=== PATIENT | male | born 1975 | race African-American/Black ===

== ENCOUNTER 2021-07-17 04:48 | Emergency (ER) | payer OTHER ==
[2021-07-17] MEDS ORDERED: TETRACAINE 0.5% OPHTH SOLN 2 ML BOTTLE ONE (04:56)
[2021-07-17] MEDS ORDERED: FLUORESCEIN NA 1 EA STRIP ONE (04:56)
[2021-07-17] MEDS ORDERED: TETRACAINE 0.5% HCL 0.6ML DROPPER.BOTTLE OD ONE (04:56)
[2021-07-17 05:03] VITALS: BP 128/81; PULSE 63; TEMP 99.1; BMI 29.5
== END 2021-07-17 05:14 | disposition home or self-care (01) ==
LOC: EDBD → FER 04:48
DX: S05.01XA Injury of conjunctiva and corneal abrasion without foreign body, right eye, initial encounter (principal); Y04.8XXA Assault by other bodily force, initial encounter
CPT/HCPCS: 99283-25